=== PATIENT | male | born 1990 | race Asian ===

== ENCOUNTER 2016-10-20 15:46 | Emergency (ER) | payer BC ==
[~2016-10-20] VITALS: Ht 165.1 cm; Wt 59.0 kg
[2016-10-20 15:46] VITALS: BP 118/84; PULSE 90; RESP 19; TEMP 98.8; O2SAT 99
--- NOTE | 2016-10-20 15:46 | NUR ---
BROUGHT BACK TO BED #8 AND TRIAGED. REPORT GIVEN TO LORENE
--- NOTE | 2016-10-20 15:56 | NUR ---
ER at bedside examining patient.
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
[2016-10-20 17:22] VITALS: BP 118/84; PULSE 90; RESP 19; TEMP 98.8; O2SAT 99
--- NOTE | 2016-10-20 17:22 | NUR ---
Patient given written and verbal discharge instructions and verbalizes understanding. ER MD Dr. Lanier discussed with patient the results and treatment provided. Patient in stable condition. ID arm band removed. Rx of Ibuprofen 800 mg and Zofran given. Patient educated on pain management and to follow up with PMD. Pain Scale 2/10. Opportunity for questions provided and answered.
== END 2016-10-20 17:22 | disposition home or self-care (01) ==
LOC: SED 15:46
DX: S16.1XXA Strain of muscle, fascia and tendon at neck level, initial encounter (principal); S39.012A Strain of muscle, fascia and tendon of lower back, initial encounter; V89.2XXA Person injured in unspecified motor-vehicle accident, traffic, initial encounter; Y93.89 Activity, other specified; Y92.89 Other specified places as the place of occurrence of the external cause; Y99.8 Other external cause status
CPT/HCPCS: 72040-TC; 72100-TC; 99284